=== PATIENT | female | born 1955 | race Caucasian/White ===

== ENCOUNTER → 2021-01-26 10:05 | Outpatient (CLI) | payer MEDICARE, SELFPAY ==
[2021-01-26 11:15] LABS: EXAGEN MAILED SPECIMEN
[2021-01-26 12:33] LABS: International Normalized Ratio 1.3; Prothrombin Time (Protime)PT. 15.4 SECONDS (11.7-14.9)
[2021-01-26 12:34] LABS: Partial Thromboplast Time 30.4 Seconds (24.1-36.2)
[2021-01-26 12:42] LABS: Color, Urine Yellow (Yellow); Glucose, Dipstick Normal (Normal); Ketone-Dipstick Negative (Negative); Leukocyte Esterase-Dipstick Negative /ul (Negative); Nitrite-Dipstick Negative (Negative); Occult Blood-Urine 10 /ul (Negative); Protein-Dipstick Negative (Negative); Specific Gravity, Urine 1.025 (1.002-1.030); Urine Bilirubin Dipstick Negative (Negative); Urine Clarity Sl. Cloudy (Clear); Urine Urobilinogen Normal (Normal)
[2021-01-26 12:46] LABS: Erythrocyte Sedimentation Rate 13 mm/hr (0-30)
[2021-01-26 12:49] LABS: Absolute Lymphocyte Count 1.21 X10^3/uL (0.83-4.51); Absolute Neutrophil Count 3.5 X10^3/uL (2.0-7.7); Basophil# 0.04 X10^3/uL; Basophil% 0.8 % (0-1); Eosinophil# 0.08 X10^3/uL; Eosinophils% 1.6 % (0-5); Hematocrit 45.4 % (37-47); Hemoglobin 14.5 g/dL (12.0-15.0); Lymphocyte # 1.21 X10^3/ul (0.83-4.51); Lymphocyte % 23.9 % (19-41); Mean Corp Hgb Conc 31.9 g/dL (32-36); Mean Corpuscular Volume 97.2 fL (81-99); Monocyte# 0.24 X10^3/uL; Monocyte% 4.7 % (0-10); NRBC Flagged by Analyzer 0 % (0-5); Neutrophil # 3.47 X10^3/uL (2.7-7.7); Neutrophil % 68.6 % (47-70); POSITIVE COUNT YES; Platelet Count 143 K/mm3 (150-450); RBC Distribution Width CV 14.2 % (11.6-14.6); RBC Distribution Width SD 51.5 fl (35.1-43.9); Red Blood Count 4.67 M/mm3 (4.2-5.4); White Blood Count 5.1 K/mm3 (4.4-11.0)
[2021-01-26 13:21] LABS: ALB/GLOB Ratio 1.1 RATIO (0.9-2.4); AST(SGOT) 27 U/L (15-37); Alanine Aminotransfer ALT/SGPT 34 U/L (13-56); Alkaline Phosphatase 100 U/L (45-117); Anion Gap 6 (5-15); BUN 14 mg/dL (7-18); BUN/Creat Ratio 19.2 RATIO (10-20); CRP < 2.90 mg/L (0.0-3.0); Calcium,Total 9.7 mg/dL (8.5-10.1); Chloride 107 mmol/L (98-107); Creatinine, Serum 0.73 mg/dL (0.55-1.02); EST Glomerular Filtration Rate 85 mL/min (>60); Est Glom Filt Rate - Afr Amer 102 mL/min (>60); Globulin 3.5 g/dL (2.2-4.2); Glucose 90 mg/dL (74-106); Potassium 3.9 mmol/L (3.5-5.1); Protein, Total 7.5 g/dL (6.4-8.2); Sodium Level 139 mmol/L (136-145)
[2021-01-26 14:27] LABS: Protein, Urine (Random) 12.5 mg/dL (<11.9); Protein:Creat Ratio 89 mg/g CRE (0-200)
[2021-01-28 13:36] LABS: Thrombin Time 20.4 sec (0.0-23.0)
[2021-01-30 09:08] LABS: Dilute Prothrombin Time (dPT) 46.6 sec (0.0-55.0); Dilute Russell Viper Venom 69.6 sec (0.0-47.0); Hexagonal Phase Phospholipid 0 sec (0-11); Hexagonal Phase Phospholipid 2 0 sec (0-11); PTT-LA 52.6 sec (0.0-51.9); PTT-LA Mix 49.9 sec (0.0-48.9); dPT Confirm Ratio 1.04 Ratio (0.00-1.40)
[2021-01-30 09:48] LABS: Interpretation Comment: (.)
== END ==
PROVIDERS: PCP Internal Medicine; Referring Provider Internal Medicine Rheumatology; Visit Provider Internal Medicine Rheumatology
DX: M06.4 Inflammatory polyarthropathy (principal); R76.8 Other specified abnormal immunological findings in serum; M79.7 Fibromyalgia; Z86.718 Personal history of other venous thrombosis and embolism; M35.00 Sjogren syndrome, unspecified; M19.041 Primary osteoarthritis, right hand; I10 Essential (primary) hypertension; E78.5 Hyperlipidemia, unspecified; E03.9 Hypothyroidism, unspecified; F32.9 Major depressive disorder, single episode, unspecified; K21.9 Gastro-esophageal reflux disease without esophagitis; N20.0 Calculus of kidney
CPT/HCPCS: 36415; 80053; 81002; 82570; 84156; 85025; 85598; 85610; 85652; 85670; 85730; 86140

== ENCOUNTER 2023-02-26 20:22 | Emergency (ER) | payer MEDICARE, SELFPAY ==
[2023-02-26 20:24] VITALS: BP 160/85; PULSE 77; RESP 16; TEMP 35.7; O2SAT 97; BMI 29.2
--- NOTE | 2023-02-26 20:47 | EX.ED.DYSGE1 ---
HPI History of Present Illness Chief Complaint: Lower Extremity Injury Detail of Chief Complaint: Leg infection Informant: patient Narrative Narrative: Patient presents due to concern for leg infection. She had an area of skin cancer removed from her lateral left lower leg in early January. She followed up a week or so later for suture removal. She then developed some mild erythema and was examined by her surgeon. He did not feel was acutely infected. Patient went to the emergency room at [facility] last Tuesday due to concern for possible blood clot versus infection. A venous ultrasound was obtained and revealed no evidence of DVT. Patient is also noted to be on Xarelto. Patient reportedly was placed on clindamycin. She took her most recent dose of that this morning but does not feel that the erythema is improved. She has an appointment this coming week with her surgeon. She has not had fever or chills. [facility] Medical History Anxiety DVT (deep venous thrombosis) High cholesterol Hypothyroid Home Medications amlodipine 5 mg tablet 5 mg PO DAILY 02/26/23 [History Last Taken Unknown] cephalexin 500 mg capsule 500 mg PO Q12 #14 CAPSULES 02/26/23 [Rx Last Taken Unknown] clindamycin HCl 300 mg capsule 300 mg PO TID 02/26/23 [History Last Taken Unknown] ezetimibe 10 mg tablet 10 mg PO DAILY 02/26/23 [History Last Taken Unknown] levothyroxine 112 mcg tablet 122 mcg PO DAILY 02/26/23 [History Last Taken Unknown] losartan 100 mg tablet 100 mg PO DAILY 02/26/23 [History Last Taken Unknown] methotrexate sodium 2.5 mg tablet 17.5 mg PO SA 02/26/23 [History Last Taken Unknown] rivaroxaban 10 mg tablet (Xarelto) 10 mg PO DAILY 02/26/23 [History Last Taken Unknown] Allergy/AdvReac Type Severity Reaction Status Date / Time acetaminophen [From Percocet] Allergy Itching Verified 02/26/23 20:23 meperidine [From Demerol] Allergy Swelling Verified 02/26/23 20:23 midazolam [From Versed] Allergy Swelling Verified 02/26/23 20:23 oxycodone [From Percocet] Allergy Itching Verified 02/26/23 20:23 Penicillins [PCN] Allergy Itching Verified 02/26/23 20:23 Sulfa (Sulfonamide Allergy Itching Verified 02/26/23 20:23 Antibiotics) Social History Smoking Status: Never smoker ROS ROS ED Constitutional Constitutional ED: Denies chills or fever(s) Eyes Eyes: Denies change in vision or discharge from eye(s) ENT ENT ED: Denies discharge from eye(s), rhinorrhea or sore throat Cardiovascular Cardiovascular: Denies chest pain or palpitations Respiratory/Chest Respiratory/Chest: Denies cough or dyspnea Gastrointestinal Gastrointestinal: Denies abdominal pain, nausea or vomiting Genitourinary Genitourinary ED: Denies dysuria Musculoskeletal Musculoskeletal: Reports extremity pain; Denies back pain Integumentary Denies Abrasions or rash Neurologic Neurologic: Denies headache(s) or weakness Psychiatric Psychiatric: Denies anxiety or depression Allergic/Immunologic Allergic/Immunologic ED: Denies lip swelling or urticaria EXAM Physical Exam Const Vital Signs: 02/26/23 20:24 Temperature 96.3 F L Temperature Source Temporal Pulse Rate 77 Respiratory Rate 16 Blood Pressure 160/85 H Blood Pressure Mean 110 Pulse Ox 97 Positive well nourished and well developed General Appearance ED: well developed HEENT Reports moist mucous membranes Eyes EOMs intact bilaterally Neck no lymphadenopathy Chest Wall inspection of chest normal and palpation of chest normal Resp normal respiratory effort and clear to auscultation bilaterally Cardio regular rate and regular rhythm GI normal to inspection, nondistended, normoactive bowel sounds Extremity Extremity Narrative: Well-healed wound from prior skin cancer removal. Just anterior to this is a 1.5 cm round white lesion with serosanguineous drainage. This is surrounded by erythema and warmth. No lymphangitic streaking. Strong distal pulses. Neuro oriented x3 MDM MDM MDM Narrative Medical decision making narrative: Labwork obtained to evaluate for leukocytosis, anemia, and electrolyte derangement. Blood cultures obtained. Patient given a dose of Ancef. Lab Data Attestation: I reviewed the patient's lab results. Labs: Laboratory Results - last 24 hr 02/26/23 02/26/23 20:49 20:49 WBC 5.9 RBC 3.81 L Hgb 12.2 Hct 38.0 MCV 99.7 H MCH 32.0 MCHC 32.1 RDW Std Deviation 51.4 H RDW Coeff of Ivy 14.0 Plt Count 243 MPV 11.5 Immature Gran % (Auto) 0.300 Neut % (Auto) 61.1 Lymph % (Auto) 27.5 Kerr % (Auto) 5.2 Eos % (Auto) 5.1 H Baso % (Auto) 0.8 Absolute Neuts (auto) 3.6 Absolute Lymphs (auto) 1.63 Nucleated RBC % 0 Sodium 138 Potassium 3.0 L Chloride 108 H Carbon Dioxide 24.0 Anion Gap 6 BUN 10 Creatinine 0.84 Estim Creat Clear Calc 50.70 Est GFR (MDRD) Af Amer 87 Est GFR (MDRD) Non-Af 72 BUN/Creatinine Ratio 12.0 Glucose 209 H Calcium 9.6 Treatment and Re-Evaluation :: CBC was normal white count 5.9 with normal differential. Chemistry studies significant for low potassium at 3.0. This is replaced orally. Her glucose is 209. Patient tolerated IV Ancef without difficulty. I will add Keflex to her antibiotics. The wound is cleansed and antibiotic ointment placed. She has a follow-up appointment scheduled with her surgeon this coming week. Blood cultures are pending and she was advised that if these return positive she will receive a phone call. She was also advised to return for fever, worsening redness, other concern. Discharge Plan Triage Chief Complaint: Lower Extremity Injury ED Provider: Rosalina López Dx/Rx/DC Orders Clinical Impression: Cellulitis Instructions: ED Cellulitis Prescriptions: New cephalexin 500 mg capsule 500 mg PO Q12 Qty: 14 0RF No Action clindamycin HCl 300 mg capsule 300 mg PO TID amlodipine 5 mg tablet 5 mg PO DAILY methotrexate sodium 2.5 mg tablet 17.5 mg PO SA losartan 100 mg tablet 100 mg PO DAILY Label Comments: TAKE 1 TABLET BY MOUTH ONCE DAILY levothyroxine 112 mcg tablet 122 mcg PO DAILY ezetimibe 10 mg tablet 10 mg PO DAILY Label Comments: TAKE 1 TABLET BY MOUTH ONCE DAILY Xarelto 10 mg tablet 10 mg PO DAILY Primary Care Provider: Nancy Lazaro Referrals: Nancy Lazaro MD [Primary Care Provider] - Activity Restrictions/Additional Instructions: Follow-up with your surgeon this Tuesday as scheduled. Disposition Disposition: Home, Self Care
[2023-02-26 20:56] LABS: Absolute Lymphocyte Count 1.63 X10^3/uL (0.83-4.51); Absolute Neutrophil Count 3.6 X10^3/uL (2.0-7.7); Basophil# 0.05 X10^3/uL; Basophil% 0.8 % (0-1); Eosinophils% 5.1 % (0-5); Hemoglobin 12.2 g/dL (12.0-15.0); Lymphocyte # 1.63 X10^3/ul (0.83-4.51); Lymphocyte % 27.5 % (19-41); Mean Corp Hgb Conc 32.1 g/dL (32-36); Mean Corpuscular Volume 99.7 fL (81-99); Mean Platelet Vol. 11.5 fl (6.2-12.0); Monocyte# 0.31 X10^3/uL; Monocyte% 5.2 % (0-10); NRBC Flagged by Analyzer 0 % (0-5); Neutrophil # 3.62 X10^3/uL (2.7-7.7); Neutrophil % 61.1 % (47-70); Platelet Count 243 K/mm3 (150-450); RBC Distribution Width SD 51.4 fl (35.1-43.9); Red Blood Count 3.81 M/mm3 (4.2-5.4); White Blood Count 5.9 K/mm3 (4.4-11.0)
[2023-02-26] MEDS: Cefazolin 1 GM/50 ML BAG IV (20:58)
[2023-02-26 21:12] LABS: Anion Gap 6 (5-15); BUN 10 mg/dL (7-18); Calcium,Total 9.6 mg/dL (8.5-10.1); Chloride 108 mmol/L (98-107); Creatinine, Serum 0.84 mg/dL (0.55-1.02); EST Glomerular Filtration Rate 72 mL/min (>60); Est Glom Filt Rate - Afr Amer 87 mL/min (>60); Glucose 209 mg/dL (74-106); Sodium Level 138 mmol/L (136-145)
[2023-02-26] MEDS: Potassium Chloride Oral Tablet 20 MEQ 40 MEQ PO (21:30)
[2023-02-26 21:46] VITALS: PULSE 88; RESP 16; TEMP 36.6
== END 2023-02-26 21:48 | disposition home or self-care (01) ==
PROVIDERS: Emergency Provider Emergency Medicine; PCP Internal Medicine; Visit Provider Emergency Medicine
DX: L03.116 Cellulitis of left lower limb (principal); E78.00 Pure hypercholesterolemia, unspecified; Z79.01 Long term (current) use of anticoagulants; Z86.718 Personal history of other venous thrombosis and embolism; Z79.899 Other long term (current) drug therapy; E03.9 Hypothyroidism, unspecified; Z85.828 Personal history of other malignant neoplasm of skin; E87.6 Hypokalemia
CPT/HCPCS: 80048; 85025; 87040; 96365; 99284

== ENCOUNTER → 2024-08-06 | Outpatient (CLI) | payer MEDICARE, SELFPAY ==
--- NOTE | 2024-08-06 07:12 | US_ITS ---
STUDY: ABDOMINAL ULTRASOUND - RIGHT UPPER QUADRANT; ELASTOGRAPHY REASON FOR VISIT: Female, 69 years old. Fatty infiltration of the liver. TECHNIQUE: Ultrasound evaluation of the right upper quadrant was performed with real-time and static duvall-scale imaging. Point quantification shear wave elastography was performed (Surphace). TECHNICAL QUALITY: Adequate. COMPARISON: None. FINDINGS: Liver: The liver measures 15.4 cm. There is increased echogenicity consistent with fatty infiltration. The bile ducts are within normal limits. There is hepatic color flow. The direction of portal flow is hepatopetal. There is no demonstrated mass lesion. Median liver stiffness measured 11 kPa. Gallbladder: The patient is status post cholecystectomy. Common Bile Duct (C.B.D.): The common bile duct measures 6.3 mm. Pancreas: There is normal echogenicity of the visualized pancreas. There is no demonstrated pancreatic mass or cyst. Right Kidney: Normal size of the right kidney. The right kidney measures 10.7 cm x 5.1 cm x 4.1 cm. Normal renal cortex. The right cortex measures 1.2 cm. There is no demonstrated renal mass or cyst. There is no right hydronephrosis. US/ABD Limited w/ Elastography IMPRESSION: 1. Liver stiffness measures 11 kPa compatible with F2-F3 (Mild to moderate liver fibrosis) Metavir score. 2. Status post cholecystectomy. Electronically Signed: Phil Aguilar MD at 14:59 EST ,
== END | disposition home or self-care (01) ==
PROVIDERS: PCP Internal Medicine; Referring Provider Internal Medicine Gastroenterology; Visit Provider Internal Medicine Gastroenterology
DX: K76.0 Fatty (change of) liver, not elsewhere classified (principal)
CPT/HCPCS: 76705; 76981